=== PATIENT | male | born 1990 | race Caucasian/White ===

== ENCOUNTER 2020-07-02 16:31 | Emergency (ER) | payer SELFPAY ==
[~2020-07-02] VITALS: Ht 172.7 cm; Wt 93.2 kg
[2020-07-02 16:42] VITALS: BP 132/88; TEMP 97.7
[2020-07-02] MEDS ORDERED: AMOXICILLIN 8751 TAB PO (18:08)
[2020-07-02 18:23] VITALS: PULSE 86
== END 2020-07-02 18:23 | disposition home or self-care (01) ==
LOC: COL.ER 16:31
DX: K02.9 Dental caries, unspecified (principal); K12.2 Cellulitis and abscess of mouth; R68.84 Jaw pain